=== PATIENT | female | born 1950 | race Caucasian/White ===

== ENCOUNTER → 2025-05-01 | Outpatient (CLI) | payer MEDICARE ==
--- NOTE | 2025-05-01 15:55 | CT ---
EXAMINATION TYPE: CT chest wo con DATE OF EXAM: 05/01/2025 COMPARISON: None CLINICAL INDICATION: Female, 75 years old with history of J98.4 OTHER DISORDERS OF LUNG; [facility], follow up- bird fancier's lung disease TECHNIQUE: CT scan of the thorax is performed without IV contrast. CT DLP: [address] CTDI: mGy Automated exposure control for dose reduction was used. FINDINGS: There is evidence for prior granulomatous disease exposure. There are multiple calcified granulomas a nd calcified mediastinal lymph nodes as well as multiple calcified splenic granulomas. There are mild emphysematous changes in the upper lobes. There are localized areas of reticular nodular densities and groundglass opacities in the left upper lobes and lower lobes without traction bronchiectasis. There is no honeycombing. The right lung is es sentially clear with no consolidation or interstitial density. There is no pleural effusion or pneumothorax. The great vessels and chest are normal. There is no cardiomegaly. Limited scanning through the upper abdomen with no gross abnormality. There are no focal osseous lesions. IMPRESSION: 1. 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 2. Mild emphysematous changes. 3. Prior granulomatous disease exposure with multiple calcified granulomas, calcified mediastinal lym ph nodes and multiple calcified splenic granulomas. [facility], , 05/01/2025 3:53 PM
== END | disposition home or self-care (01) ==
LOC: RADCTMAIN 15:03
PROVIDERS: ATTEND Internal Medicine
DX: J98.4 Other disorders of lung (principal); J43.9 Emphysema, unspecified
CPT/HCPCS: 71250